=== PATIENT | male | born 1975 | race Caucasian/White ===

== ENCOUNTER 2023-10-13 11:10 | Outpatient (CLI) | payer OTHER, BC, MEDICAID, SELFPAY ==
--- NOTE | 2023-10-13 11:25 | XR_ITS ---
WS: [id number] XR abdomen min [id number] REASON FOR EXAM: R10.12 FINDINGS: No free air or retroperitoneal air. There are several short segments of nondistended gas-filled small bowel with a suggestion of mural th ickening. In the left midabdomen there are small air-fluid levels. No colon abnormality. No mass is identified. No urinary tract calculi or other significant calcification is noted. IMPRESSION: Nonspecific bowel gas pattern. Potentially there is an evolving small bowel process.
[2023-10-13 11:49] LABS: Basophils # 0.1 10^3/uL (0.0-0.1); Eosinophils # 0.7 10^3/uL (0.0-0.8); Hematocrit 48.3 % (37-53); Lymphocytes # 2.1 10^3/uL (0.8-4.8); Lymphocytes % 18.6 %; Mean Corpuscular Hemoglobin 29.3 pg (27-33); Mean Corpuscular Volume 86.4 fl (82-101); Mean Platelet Volume 9.5 fL (7.4-10.4); Monocytes # 0.7 10^3/uL (0.2-0.9); Monocytes % 6.4 %; Neutrophils % 67.7 %; Nucleated Red Blood Cells % 0 %; Platelet Count 238 10^3/cmm (157-399); Red Blood Count 5.59 10^6/uL (3.85-5.65); Red Cell Distribution Width 12.6 % (12.1-15.1); White Blood Count 11.52 10^3/uL (3.29-11.43)
[2023-10-13 12:05] LABS: Alanine Aminotransferase 20 U/L (0-41); Albumin Level 4.2 g/dL (3.5-5.2); Alkaline Phosphatase 84 U/L (40-130); Anion Gap 14.4 (5-19); Aspartate Amino Transferase 18 U/L (0-40); Blood Urea Nitrogen 7 mg/dL (6-20); Calcium 9.2 mg/dL (8.5-10.5); Carbon Dioxide 27 mmol/L (22-29); Chloride 101 mmol/L (98-107); Globulin 3.4 g/dL (1.3-4.6); Glomerular Filtration Rate 79.8 mL/min (90-130); Glucose 104 mg/dL (65-115); Lipase 21 U/L (13-60); Osmolality Calculated 284 mOsm/kg (285-295); Potassium 4.4 mmol/L (3.5-5.1); Sodium 138 mmol/L (136-145); Total Bilirubin 0.6 mg/dL (0.15-1.2); Total Protein 7.6 g/dL (6.6-8.7)
== END 2023-10-13 11:11 | disposition home or self-care (01) ==
PROVIDERS: PCP Nurse Practitioner; Visit Provider Nurse Practitioner
DX: R10.12 Left upper quadrant pain (principal)
CPT/HCPCS: 36415; 74019; 80053; 83690; 85025; 86140